=== PATIENT | female | born 1945 | race American Indian/Alaskan Native ===

== ENCOUNTER 2017-04-15 13:33 | Outpatient (CLI) | payer MEDICARE ==
[2017-04-15 14:28] LABS: Blood Urea Nitrogen 11 mg/dL (7-17)
--- NOTE | 2017-04-16 14:53 | Magnetic Resonance Report ---
MRI ABDOMEN WITH AND WITHOUT CONTRAST HISTORY: Liver mass, elevated alpha feta protein. TECHNIQUE: Multiple T1 and T2-weighted images with and without fat suppression were obtained. Dynamic postcontrast imaging through the liver. FINDINGS: Compared to the MRI abdomen with and without contrast dated 06/18/16. The liver remains normal size, contour and signal. Left hepatic lobe cavernous hemangioma measuring 2.8 x 1.4 cm and a few scattered liver cysts measuring less than 1 cm are unchanged in size. No cirrhotic changes or suspicious enhancing liver mass is detected. The biliary system, pancreas, spleen, kidneys and adrenal glands remain unremarkable. The visualized bowel loops are within normal limits. The aorta is normal caliber. No evidence for ascites, adenopathy or inflammatory changes. Impression: Cavernous hemangioma in the liver and a few scattered liver cysts which are unchanged since 06/18/16. No suspicious liver mass or cirrhotic changes identified. Otherwise, unremarkable exam of the abdomen.
== END 2017-04-15 13:34 | disposition home or self-care (01) ==
LOC: MRI 13:33
PROVIDERS: ATTEND Internal Medicine
DX: D18.09 Hemangioma of other sites (principal); R77.2 Abnormality of alphafetoprotein; K76.89 Other specified diseases of liver; R94.5 Abnormal results of liver function studies
CPT/HCPCS: 36415; 74183; 82565; 84520; A9577